=== PATIENT | male | born 1970 | race Native Hawaiian/Other Pacific Islander ===

== ENCOUNTER 2020-04-26 14:46 | Outpatient (CLI) | payer OTHER ==
--- NOTE | 2020-04-26 17:46 | SLEEP CARE CONSULTATION ---
Information from patient questionnaire entered by Virginie Cleary. I have reviewed and concur with the information entered by Virginie Cleary. This document represents the service I personally performed and the decisions made by me, Lizabeth Contreras MD, [facility]. History of Present Illness Service Date and Time: 04/26/2020 1446 Reason for Visit: New patient Chief Complaint: reports: Snoring Date of Onset: approx 2 years Usual bedtime: 9:30 pm Time it takes to fall asleep: approx 5 min Snores at night: Yes (my spouse says so) Observed to quit breathing while asleep: No Sleeps alone due to snoring: No Number of times waking at night: 0 Reasons for waking at night: reports: Bathroom Toss, Turn, or Twitch while sleeping: Yes Recalls having dreams: Yes Usually gets out of bed at: 4:26 am Feels refreshed in the morning: Yes Morning headache: No Sleepy or fatigued during the day: No Ever fallen asleep while driving: Yes Takes day naps: No Dreams during day naps: No Prior sleep studies: No Additional HPI information: I had the pleasure of seeing Mr. Deutsch today regarding the possibility of him having a sleep disorder. As you know, he is a 49 year old gentleman who complains of loud snore for the past 2 3 years. The patient tells me that he normally goes to bed around 9:30 pm, and it takes him approximately 5 minutes to fall asleep. He has been told that he snores loudly and irregularly at night. He has never been observed to stop breathing in his sleep. His can still sleep in the same bed. He can recall waking up on the average of 0 times during the night. Most of the time he wakes up because of having to use the bathroom. He has awakened because of his own snoring, choking, or having to gasp for air. There is a lot of tossing and turning in his sleep. No somniloquy (sleep talking) or somnambulism (sleep walking). Generally he can recall having dreams. In the morning he usually gets up out of the bed around 4:26 a.m. not feeling refreshed nor rested. He usually does not have a morning headache. During the day he does not feel sleepy or fatigued. His score on Florence Sleepiness Scale is 10 out of 24. He has fallen asleep while driving. He usually does not take naps during the day. Upon falling asleep during the day he denies having vivid dreams. He has never had sleep paralysis, experienced cataplexy or symptoms of restless leg syndrome. He denies having impaired concentration during the day. 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 Patient is and lives in [place]. Have you smoked in the past 12 months: No Alcohol use: No Caffeine use: No Allergies and Home Medications Drug allergies reviewed: Yes Home medication list reviewed: Yes Review of Systems Review of systems same as previous: Yes Physical Exam Vital signs obtained and entered by: Detailed physical exam was not performed to comply with the COVID-19 precau Height: 5 ft 9 in Weight: 189 lb Body Mass Index: 27.8 BMI Classification: Overweight Impression and Plan IMPRESSION: 1. Possible Obstructive Sleep Apnea-Hypopnea Syndrome, as suggested by history of loud snoring and overweight. The patient is, otherwise, asymptomaticno frequent awakenings, unrefreshed sleep, morning headache, or excessive daytime sleepiness. Pathophysiology of sleep-disordered breathing was discussed. I recommend proceeding to polysomnography to confirm the diagnosis and to assess severity. I informed the patient of what the sleep studies involve and after some discussion, he would like to have a home sleep apnea test (HSAT). Plan: 1. Schedule a home sleep apnea test (HSAT) 2. Return for a follow up after the test. Visit Type: In Office Time Spent with Patient (minutes): 15 Provider Statement: I spent 100% of the Face to Face Visit with the patient with greater than 50% spent counseling the patient and coordination of care.
== END 2020-04-26 14:47 | disposition home or self-care (01) ==
LOC: SC 14:46
PROVIDERS: ATTEND Internal Medicine Pulmonary Disease
DX: R06.83 Snoring (principal); E66.3 Overweight; Z68.27 Body mass index [BMI] 27.0-27.9, adult
CPT/HCPCS: 99203; 99212

== ENCOUNTER 2020-05-19 15:44 | Outpatient (CLI) | payer OTHER | END 2020-05-19 15:45 | disposition home or self-care (01) | LOC: SC 15:44 | PROVIDERS: ATTEND Internal Medicine Pulmonary Disease | DX: R09.02 Hypoxemia (principal) | CPT/HCPCS: 95806 ==

== ENCOUNTER 2020-05-30 16:12 | Outpatient (CLI) | payer OTHER ==
--- NOTE | 2020-05-30 16:59 | SLEEP CARE CONSULTATION ---
Information from patient questionnaire entered by Tremayne Moreno. I have reviewed and concur with the information entered by Tremayne Moreno. This document represents the service I personally performed and the decisions made by , Raeann Mcekon ARNP. History of Present Illness Service Date and Time: 05/30/20201611 Initial [place] Sleepiness Scale score: 10 (in 2020) Current [place] Sleepiness Scale score: 9 Additional HPI information: KEN PENA returns for follow up and results of the recently performed home sleep study. The patient was informed of the following findings: No significant sleep disordered breathing with an average AHI of 1.4 and bk oxygen saturation of 89%. I explained the pathophysiology behind obstructive sleep apnea. Patient does not have sleep apnea and was advised how weight gain could increase the risk of developing sleep apnea in the future. I strongly encouraged the patient to lose weight. Patient has loud snoring. Snoring can be reduced by weight loss. Weight loss is best achieved with diet consult. Patient instructed to contact PCP for referral. Snoring can also be treated with an oral appliance from a dentist. Advised to check insurance coverage. In addition, an ENT evaluation can be do to see if other treatment is indicated. Patient counseled not drink alcohol less than 4 hours before bedtime as it can increase snoring and apnea. Patient was cautioned about risks of drowsy driving until sleepiness symptoms resolve. Sleep Study - Results Type of Sleep Study: Home sleep study Prior sleep studies: No Polysomnography/Home Sleep Study results: Physician Impression: The quality of the study is good. The length of the study is adequate (> 240 minutes). Please also see the tabulated and graphic data. 1. No significant sleep-disordered breathing, with an AHI of 1.4/hr and bk SaO2 of 89%. During the study, the patient had 8 apneas (8 obstructive, 0 central, 0 mixed) and 1 hypopneas. The longest episode lasted 35.0 seconds. The patient slept mostly supine (supine AHI was 1.9 and non-supine, 0.40). 2. Hypoxemia (ICD-10 R09.02), minimal, with the lowest oxygen saturation of 89 % and 0.1 minutes with SaO2 under 90%. Baseline oxygen saturation was normal (Average oxygen saturation was 96%). Recommendation: No treatment is necessary. However, if there is a strong suspicion for sleep- disordered breathing, an in-laboratory polysomnography should be considered. Allergies and Home Medications Drug allergies reviewed: Yes (penicillin) Home medication list reviewed: Yes (no changes) Allergy and home medication list: Viagra Review of Systems Review of systems same as previous: Yes (no changes) Physical Exam Heart Rate: 57 O2 Saturation: 98 Height: 5 ft 9 in Weight: 184 lb Body Mass Index: 27.1 BMI Classification: Overweight Impression and Plan 1. Snoring but no significant sleep disordered breathing. Patient advised that often weight loss will reduce snoring as well as apnea risk. An oral appliance can also be used for snoring. This would require a dental consultation. Patient cautioned not to use other online appliances as can cause bite issues. A list of accredited dentists in [facility] and one local dentist who makes oral appliances given. Patient is advised to check if insurance will cover. An ENT consult can also be helpful to determine if any other treatment is an option. * Attempt to lose weight * Avoid alcohol consumption near bedtime * The patient is cautioned about driving until sleepiness is completely resolved. * Return as needed. Counseling Topics: Weight loss health impact Visit Type: In Office Time Spent with Patient (minutes): 15 Provider Statement: I spent 100% of the Face to Face Visit with the patient with greater than 50% spent counseling the patient and coordination of care.
== END 2020-05-30 16:13 | disposition home or self-care (01) ==
LOC: SC 16:12
PROVIDERS: ATTEND Nurse Practitioner Family
DX: R06.83 Snoring (principal); R09.02 Hypoxemia
CPT/HCPCS: 99212; 99213

== ENCOUNTER 2020-08-02 07:18 | Outpatient (CLI) | payer OTHER ==
--- NOTE | 2020-08-02 13:31 | MRI Report ---
PROCEDURE: Hip LT W/O INDICATIONS: LEFT HIP PAIN TECHNIQUE: Noncontrast coronal T1 spin echo and STIR through the bony pelvis. Coronal and axial T2 fast spin ec ho with fat saturation, sagittal T1 spin echo, and oblique axial T2 fast spin echo with fat saturatio n through the hip. COMPARISON: None. FINDINGS: Image quality: Excellent. Bones and joints: Osteophytic changes are noted in bilateral hip joints with joint space narrowing an d subchondral sclerosis. Mild prominence of superior and anterior left femoral head neck junction is seen with mild cortical thickening and minimal amount of subchondral edema which can be seen associat ed with cam-type femoral acetabular impingement. No intraosseous lesions or fractures. No avascular necrosis of the femoral heads. The visualized lower lumbar spine appears normally aligned. Tendons: The gluteus medius and minimus tendons appear intact, without associated muscle atrophy. T he iliopsoas tendon appears intact, without adjacent bursal fluid collections. The origin of the ham string tendon is intact at the ischial tuberosity. Low-grade strain/partial thickness tear involving lateral portion of obturator externus muscle is noted with intrasubstance fluid signal. Labrum and cartilage: There is suggestion of focal superior anterior labral tear in the absence of in tra-articular contrast. Thinning of articulating cartilages of femoral head is seen. The alpha angle of the femur is within normal limits at less than 55 degrees. Soft tissues: Visualized muscles demonstrate normal bulk and internal signal. The proximal sciatic neurovascular bundle appears normal adjacent to the hamstring tendons. No free pelvic fluid. Bladde r wall thickness is normal. Genitourinary structures and bowel loops appear normal where visualized. IMPRESSION: 1. Mild bilateral hip joint osteoarthritis. Prominence of left femoral head neck junction as above, w hich can be seen in the case of CAM type femoral acetabular impingement. No fracture or dislocation. No evidence of avascular necrosis. 2. Suggestion of focal superior anterior left hip labral tear. 3. Low-grade strain/partial thickness tear involving lateral portion of left obturator externus muscl e. No other muscle or tendon signal abnormality. Reviewed by: David Ramirez MD on 08/02/2020 1:29 PM PST Approved by: David Ramirez MD on 08/02/2020 1:29 PM PST Station ID: [id number]
== END 2020-08-02 07:19 | disposition home or self-care (01) ==
LOC: DI 07:18
PROVIDERS: ATTEND Nurse Practitioner Family
DX: M16.0 Bilateral primary osteoarthritis of hip (principal); S76.012A Strain of muscle, fascia and tendon of left hip, initial encounter